=== PATIENT | male | born 1965 | race Caucasian/White ===

== ENCOUNTER 2016-06-28 12:23 | Emergency (ER) | payer OTHER ==
[~2016-06-28] VITALS: Ht 162.6 cm; Wt 68.5 kg
[~2016-06-28 12:23] MED LIST: GEMFIBROZIL600 M1 PO; VITAMIN D22000 IU PO
[2016-06-28 12:24] VITALS: BP 113/69
--- NOTE | 2016-06-28 13:47 | NUR ---
Patient ambulated to bed 7. RN evaluating patient at bedside.
--- NOTE | 2016-06-28 13:50 | NUR ---
51M BIB FAMILY C/O DIZZINESS X 1 WEEK; PT DENIES TRAUMA OR INJURY TO HEAD OR BLURRY VISION AT THIS TIME; PT C/O ACHING, MID-CHEST PAIN, NON-RADIATING, 5/10 AT THIS TIME; PT DENIES N/V/D AT THIS TIME; PT A&OX4, BL LUNG SOUNDS CLEAR, RR EVEN/UNLABORED, SKIN IS WARM/DRY/INTACT AT THIS TIME; PT DENIES FEVER OR SOB AT THIS TIME; STEADY GAIT; PT RESTING IN BED W/ HOB ELEVATED AND IN LOWEST POSITION; POSITIONED FOR COMFORT; FAMILY AT BEDSIDE; ER MD MADE AWARE OF STATUS. WILL CONTINUE TO MONITOR.
--- NOTE | 2016-06-28 15:02 | NUR ---
PT APPEARS TO BE RESTING COMFORTABLY IN BED; RR EVEN/UNLABORED, FAMILY AT BEDSIDE; WILL CONTINUE TO MONITOR.
[2016-06-28 15:40] VITALS: BP 105/59
--- NOTE | 2016-06-28 15:40 | NUR ---
DPatient discharged with v/s stable. Written and verbal after care instructions given and explained. Patient alert, oriented and verbalized understanding of instructions. Ambulatory with steady gait. All questions addressed prior to discharge. ID band removed. Patient advised to follow up with PMD. Rx of NITROGYLCERIN 0.4MG SUBLINGUAL TAB & TYLENOL 325MG TAB given. Patient educated on indication of medication including possible reaction and side effects. Opportunity to ask questions provided and answered.
== END 2016-06-28 15:40 | disposition home or self-care (01) ==
LOC: MED 12:23
PROC: 4A02X4Z Measurement of Cardiac Electrical Activity, External Approach (ICD-10-PCS; principal; 2016-06-28)
DX: F34.1 Dysthymic disorder (principal); R00.1 Bradycardia, unspecified; G44.209 Tension-type headache, unspecified, not intractable; I10 Essential (primary) hypertension
CPT/HCPCS: 36415; 71010; 80053; 82553; 82948; 83880; 84484; 85025; 85379; 85610; 85730; 93005; 99285; Q0092